=== PATIENT | male | born 1990 | race African-American/Black ===

== ENCOUNTER 2021-12-01 16:43 | Emergency (ER) | payer SELFPAY ==
[2021-12-01] MEDS ORDERED: Ketorolac 60 MG/2 ML SDV IM ONE (17:52)
[2021-12-01 18:39] LABS: CORONAVIRUS COVID-19 NAA POSITIVE (NEGATIVE); INFLUENZA A NAA NEGATIVE (NEGATIVE); INFLUENZA B NAA NEGATIVE (NEGATIVE)
== END 2021-12-01 19:27 | disposition home or self-care (01) ==
LOC: MW.ED 16:43
DX: U07.1 COVID-19 (principal)
CPT/HCPCS: 0240U; 71045; 96372; 99283; J1885